=== PATIENT | male | born 1945 | race Caucasian/White ===

== ENCOUNTER 2020-08-02 20:56 | Emergency (ER) | payer MEDICARE, OTHER ==
[~2020-08-02] VITALS: Ht 167.6 cm; Wt 77.1 kg
[~2020-08-02 20:56] MED LIST: ASPI-58 PO; ATOR80TA PO; DIPH50CA37 PO; LISI10TA PO; METO-357 PO; PIOG15TA8
[2020-08-02 21:38] VITALS: BP 151/67
[2020-08-02] MEDS ORDERED: CEPH500C2 PO (22:41)
[2020-08-02] MEDS ORDERED: CEPHALEXIN MONOHYDRATE 500 MG CAPSULE PO ONE (23:00)
== END 2020-08-02 22:59 | disposition home or self-care (01) ==
LOC: ER 21:04
DX: L03.114 Cellulitis of left upper limb (principal); I10 Essential (primary) hypertension; E11.9 Type 2 diabetes mellitus without complications; I25.10 Atherosclerotic heart disease of native coronary artery without angina pectoris; I25.2 Old myocardial infarction; Z90.89 Acquired absence of other organs; Z95.818 Presence of other cardiac implants and grafts; Z60.2 Problems related to living alone; Z79.899 Other long term (current) drug therapy; Z79.82 Long term (current) use of aspirin
CPT/HCPCS: 73130-TC